=== PATIENT | male | born 1970 | race Caucasian/White ===

== ENCOUNTER 2018-04-10 14:17 | Emergency (ER) | payer OTHER ==
[~2018-04-10] VITALS: Ht 172.7 cm; Wt 74.8 kg
[2018-04-10 14:43] VITALS: BP 131/86
--- NOTE | 2018-04-10 14:59 | NUR ---
PATIENT PRESENTS TO ED WITH THE CHIEF C/O LEFT HIP PAIN THAT RADIATES TO LEFT LOWER LEG. PT STATES PAIN STARTED 3 DAYS AGO. HE HAD HX OF BACK INJURY 5 YEARS AGO. ACCORDING TO PT HE WAS HERE YESTERDAY AND GOT DISCHARGED WITH [facility]. HE IS TAKING [facility] SINCE HE GOT DISCHARGED BUT PAIN IS NOT RELIEVING, GETTING WORSE. DENIES N/V/D; SKIN IS PINK/WARM/DRY; AAOX4 WITH EVEN AND STEADY GAIT; PT DENIES ANY FEVER, CP, SOB, OR COUGH AT THIS TIME; PATIENT STATES PAIN OF 10/10 AT THIS TIME; VSS; PATIENT POSITIONED FOR COMFORT; HOB ELEVATED; BEDRAILS UP X2; BED DOWN. ER MD MADE AWARE OF PT STATUS.
[2018-04-10] MEDS ORDERED: KETOROLAC 60 MG/2 ML VIAL IM ONE (15:05)
--- NOTE | 2018-04-10 15:07 | NUR ---
Pt has numbness and tingling ensation on his left lower leg fingers. No swelling or injury noted on left hip and leg. Pt able to move leg with pain.
[2018-04-10] MEDS ORDERED: MORPHINE SULFATE 4 MG/ML SYR IM ONE (16:20)
[2018-04-10 17:23] VITALS: BP 117/73
== END 2018-04-10 17:22 | disposition home or self-care (01) ==
LOC: MED 14:17
DX: M25.552 Pain in left hip (principal); M54.5 Low back pain; F32.9 Major depressive disorder, single episode, unspecified; F41.9 Anxiety disorder, unspecified
CPT/HCPCS: 96372; 99283; J1885; J2270

== ENCOUNTER 2018-05-07 18:13 | Emergency (ER) | payer OTHER ==
[~2018-05-07] VITALS: Ht 170.2 cm; Wt 76.3 kg
[2018-05-07 18:23] VITALS: BP 117/74
[2018-05-07] MEDS ORDERED: KETOROLAC 60 MG/2 ML VIAL IM ONE (19:30)
[2018-05-07] MEDS ORDERED: MORPHINE SULFATE 4 MG/ML SYR IM ONE (20:05)
[2018-05-07 20:53] VITALS: BP 104/67
== END 2018-05-07 20:53 | disposition home or self-care (01) ==
LOC: MED 18:13
DX: M54.5 Low back pain (principal); M25.552 Pain in left hip
CPT/HCPCS: 96372; 99283; J1885; J2270